=== PATIENT | female | born 1975 | race Hispanic/Latino ===

== ENCOUNTER 2016-12-28 06:53 | Day surgery (SDC) | payer BC ==
[2016-12-24 08:12] VITALS: BMI 25.2
[2016-12-28] MEDS ORDERED: Propofol 10 mg/ml Inj (20 ML) ONE (07:35)
[2016-12-28] MEDS ORDERED: Lactated Ringer's 1,000 ML IV ONE ×2 (07:59)
[2016-12-28] MEDS ORDERED: HYDROmorphone 0.5 mg/0.5 ml ISec IVP PRN (08:41)
--- NOTE | 2016-12-28 08:54 | PCM.SURG1 ---
Surgeon's Initial Post Op Note - Surgeon's Notes Surgeon: Merry Duarte MD Spray Blender: none Type of Anesthesia: General LMA Pre-Operative Diagnosis: Abnormal uterine bleeding Operative Findings: 10 week dize anteverted uteurs, no adnexal masses, bilateral ostia visulzied, no gross masses Post-Operative Diagnosis: same as above Operation Performed: Operative hysteroscpy fraction dilation and currettage Specimen/Specimens Removed: endocervical currettings, endometrial currettings Estimated Blood Loss: EBL {In ML}: 5 Blood Products Given: N/A Drains Used: No Drains Post-Op Condition: Good Date of Surgery/Procedure: 12/28/16 Time of Surgery/Procedure: 08:35
[2016-12-28 09:24] VITALS: O2SAT 100
[2016-12-28 10:25] VITALS: TEMP 97.2
[2016-12-28 10:51] VITALS: BP 120/71; PULSE 63; RESP 18
--- NOTE | 2016-12-28 16:21 | OP ---
DATE OF PROCEDURE: 12/28/2016 SURGEON: Dr. Merry Duarte. BIOMETRICS SPECIALIST: None. TYPE OF ANESTHESIA: General LMA. PREOPERATIVE DIAGNOSIS: Abnormal uterine bleeding. OPERATIVE FINDINGS: A 10-week size anteverted uterus, no adnexal masses, bilateral ostia visualized, no gross masses. POSTOPERATIVE DIAGNOSIS: Abnormal uterine bleeding. PROCEDURES PERFORMED: Operative hysteroscopy, fractional dilation and curettage. SPECIMENS REMOVED: Endocervical curettings and endometrial curettings. ESTIMATED BLOOD LOSS: 5 mL. BLOOD PRODUCTS: None. COMPLICATIONS: None. DESCRIPTION OF PROCEDURE: The patient was taken to the operating room where she was given general anesthesia. Once found to be adequate, she was placed on the operating table in the dorsal supine position with legs supported using stirrups. The patient was prepped and draped in the usual sterile fashion. A time-out confirmed correct patient and correct procedure. Bimanual exam was performed with above-mentioned findings. A red rubber catheter was then inserted into the urethra to drain the bladder with 10 mL of clear yellow urine obtained. Following this, a [place] retractor was placed in the anteroposterior fornix of the vagina. The cervix was adequately visualized. A single-toothed tenaculum was placed on the anterior lip of the cervix and endocervical curettings were obtained with [facility] and sent to Pathology on [facility]. The uterus was then sounded to 8 cm and the cervix was sequentially dilated with a Lew dilator to allow for introduction of the hysteroscope under direct visualization using the normal saline as a distention media. There was a white thickened proliferative endometrium noted within the cavity, no gross masses, and bilateral ostia visualized. Following this, the hysteroscope was then removed and a gentle curettage was done 360 degrees until gritty texture was noted. Specimen sent to Pathology and labeled as endometrial curettings. All instruments were removed. There was good hemostasis at the tenaculum puncture site. At the end of the procedure, all needle, sponge, and instrument counts were noted and correct x2. The patient tolerated the procedure well and was transferred to the recovery room in stable condition. Merry Duarte MD
== END 2016-12-28 10:47 | disposition home or self-care (01) ==
LOC: C.SDS 06:53
PROVIDERS: ATTEND Obstetrics & Gynecology
DX: N72 Inflammatory disease of cervix uteri (principal); N93.9 Abnormal uterine and vaginal bleeding, unspecified; N85.4 Malposition of uterus; N76.0 Acute vaginitis; Z98.890 Other specified postprocedural states; Z91.013 Allergy to seafood; Z91.018 Allergy to other foods
CPT/HCPCS: 58558; 88305; J1885; J2001; J2405; J2704; J3010; J7120